=== PATIENT | male | born 1945 | race Caucasian/White ===

== ENCOUNTER 2018-05-29 22:55 | Emergency (ER) | payer MEDICARE, OTHER ==
[2018-05-29] MEDS ORDERED: Adacel (T-DAP) 0.5 ML SYRINGE ONE (23:18)
[2018-05-29] MEDS ORDERED: Lidocaine 1% (PF) 30 ML VIAL ONE (23:18)
[2018-05-29] MEDS ORDERED: Sodium Chloride 0.9% 200 ML ONE (23:18)
[2018-05-29] MEDS ORDERED: CEFAZOLIN 1 GM VIAL ONE (23:18)
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
[2018-05-30 00:19] LABS: #Basophils 0.1 thou/uL (0.0-0.2); #Eosinphils 0.1 thou/uL (0.0-0.7); #Lymphocytes 4.3 thou/uL (1.20-3.40); #Monocytes 0.9 thou/uL (0.11-0.59); #Neutrophils 3.8 thou/uL (1.40-6.50); %Basophils 1.2 % (0.0-1.0); %Eosinophils 1.5 % (0.0-10.0); %Lymphocytes 46.2 % (21.0-51.0); %Monocytes 10.1 % (0.0-10.0); %Neutrophils 41.1 % (42.0-75.0); Hemoglobin 16.8 g/dL (14.0-18.0); Mean Corpuscular HGB CONC 33.5 g/dL (32.0-36.0); Mean Corpuscular Hemoglobin 31.2 pg (27.0-31.0); Mean Corpuscular Volume 93.1 fL (78.0-98.0); Mean Platelet Volume 8.6 fL (7.4-10.4); Platelet Count 200 thou/uL (130-400); RBC Distribution Width 11.5 % (11.5-14.5); Red Blood Cell (RBC) Count 5.39 mill/uL (4.70-6.10); White Blood Cell (WBC) Count 9.2 thou/uL (4.8-10.8)
[2018-05-30 00:29] LABS: INR-International Normal Ratio 1.1; PTT 30.6 SEC (22.9-36.1); Prothrombin Time 13.9 SEC (12.0-14.7)
[2018-05-30 00:41] LABS: ALT (SGPT) 28 U/L (8-55); AST (SGOT) 22 U/L (5-34); Albumin 4.3 g/dL (3.4-4.8); Alkaline Phosphatase 94 U/L (40-150); Anion Gap 18 mmol/L (10-20); BUN (Urea Nitrogen) 17 mg/dL (8.4-25.7); Bilirubin, Total 0.4 mg/dL (0.2-1.2); Calc. Creatinine Clearance 0 mL/min (70-130); Calcium 9.9 mg/dL (7.8-10.44); Carbon Dioxide 24 mmol/L (23-31); Chloride 104 mmol/L (98-107); Estimated GFR-MDRD 71; Globulin 3.4 g/dL (2.4-3.5); Glucose 115 mg/dL (83-110); Potassium 3.4 mmol/L (3.5-5.1); Protein, Total 7.7 g/dL (5.8-8.1); Sodium 143 mmol/L (136-145)
== END 2018-05-29 23:46 | disposition short-term general hospital (02) ==
LOC: NAV ERS 22:55
DX: S62.611A Displaced fracture of proximal phalanx of left index finger, initial encounter for closed fracture (principal); S62.621A Displaced fracture of middle phalanx of left index finger, initial encounter for closed fracture; E03.9 Hypothyroidism, unspecified; Z79.899 Other long term (current) drug therapy; W34.00XA Accidental discharge from unspecified firearms or gun, initial encounter
CPT/HCPCS: 36415; 64450; 80053; 85025; 85610; 85730; 90471; 90715; 96365; J0690; J2001; J7050